=== PATIENT | male | born 1945 | race Caucasian/White ===

== ENCOUNTER 2017-03-16 06:26 | Day surgery (SDC) | payer BC ==
[~2017-03-16] VITALS: Ht 179.1 cm; Wt 93.7 kg
[~2017-03-16 06:26] MED LIST: ASPIRIN E.C. 8181 MG PO; PREDNISONE10 MG PO
[2017-03-16] MEDS ORDERED: MULTI VITAMINS1 TAB PO (06:41)
[2017-03-16] MEDS ORDERED: LIQUIFILM TEARS15 ML OU (06:42)
[2017-03-16 07:07] VITALS: BP 138/67; PULSE 78; TEMP 98.5
[2017-03-16 09:00] VITALS: BP 111/53; PULSE 68; TEMP 97.5
[2017-03-16 09:15] VITALS: BP 114/55; PULSE 64
[2017-03-16 09:30] VITALS: BP 110/51; PULSE 61
[2017-03-16 09:45] VITALS: BP 108/55; PULSE 66
== END 2017-03-16 09:55 | disposition home or self-care (01) ==
LOC: SDCO 06:26
DX: K29.60 Other gastritis without bleeding (principal); D12.2 Benign neoplasm of ascending colon; D12.3 Benign neoplasm of transverse colon; D12.4 Benign neoplasm of descending colon; K64.0 First degree hemorrhoids; K57.30 Diverticulosis of large intestine without perforation or abscess without bleeding; K55.20 Angiodysplasia of colon without hemorrhage; D86.9 Sarcoidosis, unspecified; D50.9 Iron deficiency anemia, unspecified; Z87.09 Personal history of other diseases of the respiratory system
CPT/HCPCS: OP; J2250; J3010; J7030

== ENCOUNTER 2019-12-26 08:50 | Inpatient (IN) | payer MEDICARE, BC ==
[~2019-12-26] VITALS: Ht 177.8 cm; Wt 86.5 kg
[~2019-12-26 08:50] MED LIST changes: +LIQUIFILM TEARS15 ML OU; +MULTI VITAMINS1 TAB PO
[2019-12-26] MEDS ORDERED: NATURAL IRON65 MG ×2 (09:05→09:06)
[2019-12-26] MEDS ORDERED: XALATAN EYE DROPS OD (09:08)
[2019-12-26 09:57] LABS: COLLECTION METHOD CLEAN CATCH
[2019-12-26 10:09] LABS: HEMOGLOBIN 11.5 g/dl (13.5-18.0); MEAN CELL VOLUME 87 fl (80.0-100.0); MEAN CORPUSCULAR HEMOGLOBIN 29 pg (27.0-31.0); MEAN CORPUSCULAR HGB CONC 33 g/dl (33.0-37.0); PLATELET COUNT 99 K/mm3 (130-400); RED BLOOD COUNT 4.01 M/mm3 (4.20-5.60); REDCELL DISTRIBUTION WIDTH-CV 13.2 % (11.5-14.5)
[2019-12-26 10:14] LABS: HEMATOCRIT 34.7 % (42.0-52.0)
[2019-12-26 10:16] LABS: BILIRUBIN,TOTAL 0.6 mg/dL (0.0-1.0); C-REACTIVE PROTEIN 2.2 mg/dL (0.0-0.9); CALCIUM 8.5 mg/dL (8.4-10.2); CREATININE, serum 0.96 (0.66-1.25); POTASSIUM 3.9 mmol/L (3.4-5.0); TOTAL PROTEIN 7.1 gm/dL (6.4-8.2)
[2019-12-26 10:29] LABS: MUCOUS Present /lpf; PH 5 (5-8); SQUAMOUS EPITHELIAL 0-2 /hpf; URINE APPEARANCE Hazy; URINE BACTERIA Rare /hpf; URINE BILIRUBIN Negative (NEGATIVE); URINE BLOOD 1+ (NEGATIVE); URINE COLOR Amber; URINE GLUCOSE Negative (NEGATIVE); URINE KETONE Trace (NEGATIVE); URINE LEUKOCYTE ESTERASE Negative (NEGATIVE); URINE NITRATE Negative (NEGATIVE); URINE PROTEIN(semi-quant) 1+ (NEGATIVE); URINE RBC 0-2 /hpf
[2019-12-26 11:30] LABS: BAND 41 % (0-10); LYMPHOCYTE 4 % (20.0-51.0); NEUTROPHILS 53 % (42.0-75.2); PLATELET ESTIMATE DECREASED (NORMAL)
[2019-12-26 17:15] VITALS: BP 114/50; PULSE 73; TEMP 99.8
--- NOTE | 2019-12-26 19:50 | NUR ---
1400: PATIENT ARRIVED TO FLOOR FROM ER ACCOMPANIED BY PRODUCTION GRAPHIC DESIGNER. UPON ARRIVAL. A/O X 4. DENIES C/O PAIN OR DISCOMFORT. AMBULATES INDEPENDENTLY. NO C/O NAUSEA OR ABD PAIN. ORIENTED TO ROOM AND ISOLTATION. PATIENT VERBALIZES UNDERSTANDING. ORDERS INITIATED. ALL QUESTIONS AND CONCERNS ADDRESSED DURING VISIT.
--- NOTE | 2019-12-26 19:51 | NUR ---
Received report from Radha. Seen patient awake, lying on bed. During rounds he states he already had a bowel movement in the hat in the toilet bowl. With IV at left AC infusing NS at 150ml/hr. Denies any pain. Call light within reach. Urinal placed on the bedside table and instructed patient to use it whenever he urinates and place it back in the table since the nurse will be the one to dispose it.
[2019-12-26 20:07] VITALS: BP 127/64; PULSE 88; TEMP 100.2
--- NOTE | 2019-12-26 22:00 | NUR ---
Upon passing by on the patient's room, this nurse heard the patient screaming for help. Seen patient lying on the floor. He says that he went to the bathroom to urinate and fell when he went back to bed. His IV was pulled out when he fell. He denies hitting his head. No injuries noted. Patient has a weight and requires 3 people to put him back to bed. This nurse asked him questions on what is his name, birthday, where he is right now, who's the president and he was able to answer all of it correctly. Vital signs were taken. Patient noted to be tachycardic, maybe due to the fall that he had. He is afebrile. Re-educated patient about the call light and the urinal. Turned on bed alarm.
[2019-12-26 22:16] VITALS: BP 152/65; PULSE 109; TEMP 98.6
--- NOTE | 2019-12-26 22:30 | NUR ---
This nurse tried to reinsert an IV but failed. rubber stamps and dies supervisor came in and tried to reinsert. New IV line at left hand, G20.
[2019-12-26 23:48] VITALS: BP 137/60; PULSE 102; TEMP 103.1
[2019-12-27] VITALS (8 sets, daily range): BP systolic 110–160; BP diastolic 48–88; PULSE 74–110; TEMP 98.2–100
--- NOTE | 2019-12-27 | NUR ---
Updated Dr. Tyler via phone call about the unwitnessed fall of the patient. Informed him that vital signs for midnight shows he is febrile with temp of 103.1. He is tachycardic as well. He ordered blood culture x2 and to give Tylenol for fever.
[2019-12-27 06:56] LABS: HEMOGLOBIN 10.3 g/dl (13.5-18.0); MEAN CELL VOLUME 86 fl (80.0-100.0); MEAN CORPUSCULAR HEMOGLOBIN 30 pg (27.0-31.0); MEAN CORPUSCULAR HGB CONC 34 g/dl (33.0-37.0); PLATELET COUNT 76 K/mm3 (130-400); RED BLOOD COUNT 3.49 M/mm3 (4.20-5.60); REDCELL DISTRIBUTION WIDTH-CV 13.2 % (11.5-14.5)
[2019-12-27 07:08] LABS: ALBUMIN 3.3 gm/dL (3.5-5.0); BILIRUBIN,TOTAL 0.5 mg/dL (0.0-1.0); CALCIUM 7.9 mg/dL (8.4-10.2); CREATININE, serum 0.9 (0.66-1.25); POTASSIUM 3.9 mmol/L (3.4-5.0); TOTAL PROTEIN 6.1 gm/dL (6.4-8.2)
--- NOTE | 2019-12-27 07:26 | NUR ---
Patient was reoriented about the use of call light and urinal. Instructed him to ask for assistance if he wants to stand up. He had a bowel movement last night which is hard and formed. Specimen sent for GI panel. Had a febrile episode last night and Tylenol was given. This morning he is afebrile and still tachycardic.
[2019-12-27 07:46] LABS: BAND 25 % (0-10); LYMPHOCYTE 14 % (20.0-51.0); NEUTROPHILS 57 % (42.0-75.2); OVALOCYTES 1+; PLATELET ESTIMATE DECREASED (NORMAL)
--- NOTE | 2019-12-27 10:12 | NUR ---
SW contacted the patient to discuss discharge plan. The patient is on COVID precautions and pending results. The patient lives in [place] with his , Veena (ph#[phone]). He reports independence with ADLs and states that he does not have any DME. The patient's PCP is Dr. Aqulies Peacock and he receives his medications at [facility]. He reports no difficulties obtaining his meds. The patient does not have advanced directives in EMR, but he reports that he does have them completed and at home. He states that his is his DPOA-HC. The patient plans to return home upon discharge. HARSH then contacted and updated the patient's , Veena. Veena confirmed the above information. She states that they do have a walker at home. Veena reports that the patient has some balance issues and vision impairment. She reports that she has some concerns with the patient maintaining his balance or losing strength while he is in the hospital. HARSH to ask for PT/OT to be ordered. HARSH to continue to follow.
[2019-12-28 00:13] VITALS: BP 130/80; PULSE 74; TEMP 98.8
[2019-12-28 04:14] VITALS: BP 129/70; PULSE 79; TEMP 99.3
--- NOTE | 2019-12-28 05:33 | NUR ---
Patient noted to be alert and oriented x4 and answers questions correctly. However, after patient was given his medications he was cued that he could lie down and get some sleep, and he stood up as if to go somewhere. When asked where he was going, he stated he was going to his bed. Patient was able to be redirected into the hospital bed, but intermittent confusion like this continued throughout the night. No diarrhea noted this shift. Denies pain. Covid results returned negative. Dr. Martinez notified and patient taken off isolation precautions. Bed alarm used d/t intermittent confusion. Temperatures have been below 99.5 throughout the night. Patient denies any further needs. Will continue to monitor.
[2019-12-28 07:10] LABS: HEMOGLOBIN 11.5 g/dl (13.5-18.0); MEAN CELL VOLUME 87 fl (80.0-100.0); MEAN CORPUSCULAR HEMOGLOBIN 28 pg (27.0-31.0); MEAN CORPUSCULAR HGB CONC 33 g/dl (33.0-37.0); MEAN PLATELET VOLUME 11.1 fl (7.4-10.4); PLATELET COUNT 93 K/mm3 (130-400); RED BLOOD COUNT 4.07 M/mm3 (4.20-5.60); REDCELL DISTRIBUTION WIDTH-CV 13.2 % (11.5-14.5)
[2019-12-28 07:25] LABS: HEMATOCRIT 35.2 % (42.0-52.0)
[2019-12-28 07:27] LABS: ALBUMIN 3.7 gm/dL (3.5-5.0); BILIRUBIN,TOTAL 0.6 mg/dL (0.0-1.0); CALCIUM 8.4 mg/dL (8.4-10.2); CREATININE, serum 0.87 (0.66-1.25); POTASSIUM 3.8 mmol/L (3.4-5.0); TOTAL PROTEIN 6.6 gm/dL (6.4-8.2)
[2019-12-28 07:58] LABS: BAND 40 % (0-10); LYMPHOCYTE 16 % (20.0-51.0); NEUTROPHILS 36 % (42.0-75.2); PLATELET ESTIMATE DECREASED (NORMAL)
[2019-12-28 08:40] VITALS: BP 137/64; PULSE 89; TEMP 98.7
--- NOTE | 2019-12-28 09:40 | NUR ---
PT IN CHAIR UPON ENTERING ROOM TALKING ON THE PHONE. PT APPEARED UPSET HE HAD TO PRESS THE CALL LIGHT MULTIPLE TIMES BEFORE THE AID WAS ABLE TO HELP HIM TO THE BATHROOM. PT DID NOT LIKE THE TASTE OF HIS ENSURE EITHER. PT TOOK MEDS, ASSESSMENT PERFORMED, WATER AT BEDSIDE, DENYING PAIN OR DISCOMFORT. NO OTHER NEEDS AT THIS TIME.
[2019-12-28 11:04] VITALS: BP 103/52; PULSE 86; TEMP 99.1
[2019-12-28 17:20] VITALS: BP 127/51; PULSE 75; TEMP 98.7; TEMP 99.6
--- NOTE | 2019-12-28 17:53 | NUR ---
UNEVENTFUL SHIFT, PT PLEASANT, LAYING IN BED, PT UP TO CHAIR FOR MAJORITY OF DAY, WATER AT BEDSIDE, NO OTHER NEEDS AT THIS TIME.
--- NOTE | 2019-12-28 20:00 | NUR ---
At time of assessment, patient is in bed watching TV. He is alert and oriented with no pain and no edema. His heart sounds are regular with a murmur and lungs are clear. No concerns at this time. Will continue to monitor.
[2019-12-28 21:13] VITALS: BP 131/54; PULSE 85; TEMP 98.5
[2019-12-29 00:09] VITALS: BP 134/73; PULSE 90; TEMP 98.6
[2019-12-29 04:00] VITALS: BP 125/48; PULSE 72; TEMP 98.5
--- NOTE | 2019-12-29 05:06 | NUR ---
Patient has had a restful night with zero complaints. He is hoping to discharge tomorrow. He has remained alert and oriented throughout the night. He has been using the urinal in bed and I have not observed him ambulate. Will continue to monitor.
[2019-12-29 07:56] VITALS: BP 134/53; PULSE 64; TEMP 97.6
[2019-12-29 08:00] LABS: HEMOGLOBIN 10.5 g/dl (13.5-18.0); MEAN CELL VOLUME 86 fl (80.0-100.0); MEAN CORPUSCULAR HEMOGLOBIN 29 pg (27.0-31.0); MEAN CORPUSCULAR HGB CONC 33 g/dl (33.0-37.0); MEAN PLATELET VOLUME 11.5 fl (7.4-10.4); PLATELET COUNT 90 K/mm3 (130-400); RED BLOOD COUNT 3.64 M/mm3 (4.20-5.60); REDCELL DISTRIBUTION WIDTH-CV 13.2 % (11.5-14.5)
[2019-12-29 08:05] LABS: HEMATOCRIT 31.4 % (42.0-52.0)
[2019-12-29 08:14] LABS: ALBUMIN 3.4 gm/dL (3.5-5.0); BILIRUBIN,TOTAL 0.5 mg/dL (0.0-1.0); CALCIUM 8.5 mg/dL (8.4-10.2); CREATININE, serum 0.82 (0.66-1.25); TOTAL PROTEIN 6.2 gm/dL (6.4-8.2)
--- NOTE | 2019-12-29 08:40 | NUR ---
PT AOX4. PARTICIPATED WITH THERAPY. REPORTS FEELING WEAK. 1 CONTACT GUARD ASSIST. DENIES PAIN, N/V, BELTRAN, CP. MURMUR PRESENT. LCTA. STATES LAST BM YESTERDAY FORMED. WOUD LIKE TO TAKE FIRST IRON PILL THIS AM AND SECOND LATER IN DAY. NO NEW CONCERNS.
[2019-12-29 10:20] LABS: BAND 15 % (0-10); EOSINOPHIL 1 % (0-4); LYMPHOCYTE 32 % (20.0-51.0); NEUTROPHILS 41 % (42.0-75.2)
[2019-12-29 10:21] LABS: OVALOCYTES 1+; PLATELET ESTIMATE DECREASED (NORMAL)
[2019-12-29] MEDS ORDERED: LEVAQUIN 750MG750 M1 PO (10:50)
[2019-12-29] MEDS ORDERED: FLAGYL500 MG PO (10:50)
[2019-12-29 11:52] VITALS: BP 101/52; PULSE 73; TEMP 98.4
--- NOTE | 2019-12-29 12:55 | NUR ---
PT DC'D TO HOME, PICKED UP BY @ [id number]. NO CONCERNS AT DISCHARGE.
--- NOTE | 2019-12-29 13:01 | NUR ---
Electronics Detail Draftsperson attended clinical rounds with the team. Patient to discharge home today. Patient was able to walk 500 ft with therapy and feels comfortable returning home. SW contacted patient's , Veena to provide update. Veena will moss picker patient upon discharge. No additional needs at this time.
== END 2019-12-29 12:45 | disposition home or self-care (01) | DRG 872 ==
LOC: COL.ER 08:50 → MEDICAL 11:26
PROVIDERS: Emergency Medicine; Physician Assistant; ADMIT Student in an Organized Health Care Education/Training Program
DX: A41.9 Sepsis, unspecified organism (principal); E87.1 Hypo-osmolality and hyponatremia; D61.818 Other pancytopenia; D69.6 Thrombocytopenia, unspecified; R19.7 Diarrhea, unspecified; Z20.828 Contact with and (suspected) exposure to other viral communicable diseases; R53.81 Other malaise; R79.89 Other specified abnormal findings of blood chemistry; D50.9 Iron deficiency anemia, unspecified; Z87.891 Personal history of nicotine dependence
CPT/HCPCS: 99223-AI; 99232-AI; 99239; J0692; J1650; J3370; J7030; J7050